=== PATIENT | female | born 1965 | race Caucasian/White ===

== ENCOUNTER → 2017-11-05 15:56 | Outpatient (CLI) | payer SELFPAY ==
--- NOTE | 2017-11-05 07:57 | COLBX_PTH ---
PATIENT: IVAN SHERWOOD LOC: [facility] U#:[id number] AGE/SX: 59/F ROOM: RE11/05/[address]: Dr. Jim Matute MD : [id number] BED: DIS: SPEC #: [id number] RECD: 11/05/17 15:41 STATUS: AMRIT GILMOREFernanda #: [id number] DOROTHY: 11/05/17 07:[address]: Jim Matute DEPT: SURGICAL PATHOLOGY RECD BY: Nadeem Salvador ENTERED: 11/08/17 08:03 SP TYPE: COLON BX COLBY DR: CORA Tissues: A - Right colon B - Left colon Procedures: Surgery Specimen Level IV HEADER OPERATION: Colonoscopy with biopsies PRE-OP DIAGNOSIS: History UC TISSUE SUBMITTED: A. Right colon biopsies, rule out UC, B. Left colon biopsies rule out UC MICROSCOPIC DIAGNOSIS A. Right colon, biopsy: Glandular architectural change consistent with quiescent colitis. No evidence of dysplasia. B. Left colon, biopsy: Glandular architectural change consistent with quiescent colitis. No evidence of dysplasia. AM:red 11/09/17 COMMENT A & B. Active colitis is not identified. Clinical correlation is suggested. MICROSCOPIC DESCRIPTION Slides are reviewed. GROSS DESCRIPTION A - Received in fixative is one container labeled with the patient's name and designated right colon biopsy. The specimen consists of multiple irregular fragments of light hedrick soft tissue that in aggregate measure 1 x 0.3 x 0.1 cm. The specimen is totally submitted in one cassette. B - Received in fixative is one container labeled with the patient's name and designated left colon biopsy. The specimen consists of multiple irregular fragments of light hedrick soft tissue that in aggregate measure 1.5 x 0.3 x 0.1 cm. The specimen is totally submitted in one cassette. / SJ:red 11/08/17 TC:5 CPT: 00851 x2
== END ==
PROVIDERS: Visit Provider Internal Medicine Gastroenterology
DX: K51.90 Ulcerative colitis, unspecified, without complications (principal)
CPT/HCPCS: 88305